=== PATIENT | male | born 1985 | race African-American/Black ===

== ENCOUNTER 2022-03-21 21:55 | Emergency (ER) | payer SELFPAY ==
[2022-03-21] MEDS: Ketorolac 60 MG/2 ML SDV IM ONE (22:28)
== END 2022-03-21 22:45 | disposition home or self-care (01) ==
LOC: KA.ED 21:55
DX: M25.562 Pain in left knee (principal); R01.1 Cardiac murmur, unspecified
CPT/HCPCS: 73562-LT; 96372; 99283; J1885